=== PATIENT | male | born 1955 | race Caucasian/White ===

== ENCOUNTER 2019-11-17 13:01 | Emergency (ER) | payer OTHER ==
[2019-11-17] MEDS ORDERED: Diphtheria,Pertussis(Acell),Tetanus Vaccine 0.5 ML SDV IM ONE (14:11)
--- NOTE | 2019-11-17 14:57 | EDM.PDOC ---
ED HPI GENERAL MEDICAL PROBLEM - General Chief Complaint: General Stated Complaint: CUT HAND Time Seen by Provider: 11/17/19 13:35 Source of Information: Reports: Patient History Limitations: Reports: No Limitations - History of Present Illness INITIAL COMMENTS - FREE TEXT/NARRATIVE: Patient presents emergency department with a laceration to the dorsum of his right hand lateral to the index MCP joint. Patient states his laceration occurred today after he hit his hand on a boat anchor. Patient states bleeding is controlled, last tetanus he believes was about 10 years ago. Patient denies any other symptoms to include numbness to his distal index finger, tingling, loss of range of motion. - Related Data Allergies Allergy/AdvReac Type Severity Reaction Status Date / Time No Known Allergies Allergy Verified 11/17/19 14:17 ED ROS GENERAL - Review of Systems Review Of Systems: Comprehensive ROS is negative, except as noted in HPI. ED EXAM, GENERAL - Physical Exam Exam: See Below Exam Limited By: No Limitations General Appearance: Alert, WD/WN, No Apparent Distress Eye Exam: Bilateral Eye: EOMI, PERRL Respiratory/Chest: No Respiratory Distress, No Accessory Muscle Use Cardiovascular: Normal Peripheral Pulses, No Edema, No JVD Peripheral Pulses: 2+: Radial (L), Radial (R) Extremities: Normal Range of Motion, Non-Tender, Other (3 cm laceration to the dorsum of patient's right hand just lateral to the MCP of index finger.) Psychiatric: Normal Affect, Normal Mood Skin Exam: Warm, Dry Course - Vital Signs Last Recorded V/S: Last Vital Signs Temp 97.6 F 11/17/19 13:27 Pulse 67 11/17/19 13:27 Resp 18 11/17/19 13:27 BP 135/90 11/17/19 13:27 Pulse Ox 100 11/17/19 13:27 - Orders/Labs/Meds Orders: Active Orders 24 hr Category Date Time Status Vaccines to be Administered [RC] PER UNIT ROUTINE Care 11/17/19 14:16 Active Meds: Medications Discontinued Medications Generic Name Dose Route Start Last Admin Trade Name Freq PRN Reason Stop Dose Admin Diphtheria/Tetanus/Acell Pertussis 0.5 ml 11/17/19 14:11 Boostrix IM 11/17/19 14:12 .ONCE ONE Departure - Departure Time of Disposition: 14:30 Disposition: Home, Self-Care 01 Clinical Impression: Laceration of right hand - Discharge Information *PRESCRIPTION DRUG MONITORING PROGRAM REVIEWED*: Not Applicable *COPY OF PRESCRIPTION DRUG MONITORING REPORT IN PATIENT GENARO: Not Applicable Instructions: Laceration Care, Adult, Wound Infection, [id number], Tissue Adhesive Wound Care, [id number] Referrals: PCP,None [Primary Care Provider] - Forms: ED Department Discharge Additional Instructions: Discharge home. Keep steri stripes and glue in place for 7 days. Keep wound clean and dry. Monitor for signs of infection redness, increased pain, fever. Apply a piece of duct tape over the wound when golfing this weekend. Steri stripes my come off when the duct tape is remove. Follow up as needed with primary provider. Sepsis Event Note (ED) - Evaluation Sepsis Screening Result: No Definite Risk - Focused Exam Vital Signs: Vital Signs Temp Pulse Resp BP Pulse Ox 11/17/19 13:27 97.6 F 67 18 135/90 100 11/17/19 13:26 97.2 F 67 18 135/90 100 - Problem List & Annotations (1) Laceration of right hand SNOMED Code(s): 544629039, 01881353233073252 Code(s): S61.411A - LACERATION WITHOUT FOREIGN BODY OF RIGHT HAND, INIT ENCNTR Status: Acute Qualifiers: Encounter type: initial encounter Foreign body presence: without foreign body Qualified Code(s): S61.411A - Laceration without foreign body of right hand, initial encounter - Problem List Review Problem List Initiated/Reviewed/Updated: Yes - My Orders Last 24 Hours: My Active Orders 11/17/19 14:16 Vaccines to be Administered [RC] PER UNIT ROUTINE - Assessment/Plan Last 24 Hours: My Active Orders 11/17/19 14:16 Vaccines to be Administered [RC] PER UNIT ROUTINE Assessment:: Assessment: Laceration right hand Plan: Close laceration with Steri-Strips and glue at patient request, risks and benefits discussed glue versus sutures Encourage patient to monitor for signs symptoms of infection, infection prevention measures.
== END 2019-11-17 14:30 | disposition home or self-care (01) ==
LOC: LB.ED 13:01
DX: S61.411A Laceration without foreign body of right hand, initial encounter (principal); Z23 Encounter for immunization; W22.8XXA Striking against or struck by other objects, initial encounter
CPT/HCPCS: 12002; 90471; 90715; 99282; 99282-25

== ENCOUNTER 2022-11-02 16:20 | Emergency (ER) | payer MEDICARE, OTHER ==
[2022-11-02] MEDS ORDERED: Sulfamethoxazole/Trimethoprim 800-160 MG Tab ONE (17:00)
== END 2022-11-02 17:28 | disposition home or self-care (01) ==
LOC: LB.ED 16:20
DX: S51.812A Laceration without foreign body of left forearm, initial encounter (principal); W18.30XA Fall on same level, unspecified, initial encounter
CPT/HCPCS: 99283; A9270-GY